=== PATIENT | female | born 1970 | race Caucasian/White ===

== ENCOUNTER 2017-05-26 13:49 | Emergency (ER) | payer MEDICARE, MEDICAID ==
--- NOTE | 2017-05-26 14:00 | ER Document Report ---
ED Medical Screen (RME) - General Chief Complaint: Allergic Reaction Stated Complaint: POSSIBLE ALLERGIC REACTION Time Seen by Provider: 05/26/17 13:58 Mode of Arrival: Medic Information source: Patient Notes: 46-year-old female presents as an allergic reaction as only took erythromycin, patient was given Benadryl 3 tablets as well as Solu-Medrol by EMS I have greeted and performed a rapid initial assessment of this patient. A comprehensive ED assessment and evaluation of the patient, analysis of test results and completion of the medical decision making process will be conducted by additional ED providers. PHYSICAL EXAMINATION: GENERAL: Drowsy HEAD: Atraumatic, normocephalic. EYES: Pupils equal round extraocular movements intact, conjunctiva are normal. ENT: Nares patent NECK: Normal range of motion LUNGS: No respiratory distress Musculoskeletal: Normal range of motion NEUROLOGICAL: Normal speech, normal gait. PSYCH: Normal mood, normal affect. SKIN:skin is red TRAVEL OUTSIDE OF THE [place] IN LAST 30 DAYS: No - Related Data Allergies/Adverse Reactions: erythromycin base [Erythromycin Base] Allergy (Intermediate, Verified 03/27/15 10:27) Hives Sulfa (Sulfonamide Antibiotics) Allergy (Unknown, Verified 04/03/15 08:22) STEROIDS Adverse Reaction (Intermediate, Uncoded 03/27/15 10:27) Swelling of hands and/or feet Past Medical History - Past Medical History Cardiac Medical History: Denies: Hx Coronary Artery Disease, Hx Heart Attack, Hx Hypertension Pulmonary Medical History: Reports: Hx Asthma Denies: Hx Bronchitis, Hx COPD, Hx Pneumonia Neurological Medical History: Denies: Hx Cerebrovascular Accident, Hx Seizures Musculoskeltal Medical History: Reports Hx Arthritis Psychiatric Medical History: Reports: Hx Anxiety, Hx Depression Past Surgical History: Reports: Hx Cholecystectomy, Hx Orthopedic Surgery - c 5/ 6 sugery/left knee, Hx Tonsillectomy - Immunizations Hx Diphtheria, Pertussis, Tetanus Vaccination: Yes
[2017-05-26] MEDS ORDERED: NORMAL SALINE 1000 ML 1,000 ML IV ONE (14:38)
[2017-05-26] MEDS ORDERED: FAMOTIDINE 20 MG TABLET PO ONE (14:38)
--- NOTE | 2017-05-26 16:35 | ER Document Report ---
ED Allergic Reaction - General Chief Complaint: Allergic Reaction Stated Complaint: POSSIBLE ALLERGIC REACTION Time Seen by Provider: 05/26/17 13:58 Mode of Arrival: Medic Information source: Patient Notes: Patient is a 46-year-old female who presents to the ER today for allergic reaction, rash all over after accidentally taking erythromycin which she is allergic to. Patient states that she is on amoxicillin for urinary tract infection and was finishing it with her last dose when her accidentally grabbed the wrong bottle which had erythromycin in it. Patient has a known allergy to erythromycin. She states that she got lightheaded about an hour after taking it and the rash started, she states that she is having some "scratching feeling" to her throat. She denies any difficulty breathing at this time. TRAVEL OUTSIDE OF THE [place] IN LAST 30 DAYS: No - Related Data Allergies/Adverse Reactions: erythromycin base [Erythromycin Base] Allergy (Intermediate, Verified 03/27/15 10:27) Hives Sulfa (Sulfonamide Antibiotics) Allergy (Unknown, Verified 04/03/15 08:22) STEROIDS Adverse Reaction (Intermediate, Uncoded 03/27/15 10:27) Swelling of hands and/or feet Past Medical History - General Information source: Patient - Social History Smoking Status: Current Every Day Smoker Chew tobacco use (# tins/day): No Frequency of alcohol use: None Drug Abuse: None Family History: Reviewed & Not Pertinent Patient has suicidal ideation: No Patient has homicidal ideation: No - Past Medical History Cardiac Medical History: Denies: Hx Coronary Artery Disease, Hx Heart Attack, Hx Hypertension Pulmonary Medical History: Reports: Hx Asthma Denies: Hx Bronchitis, Hx COPD, Hx Pneumonia Neurological Medical History: Denies: Hx Cerebrovascular Accident, Hx Seizures Renal/ Medical History: Denies: Hx Peritoneal Dialysis Musculoskeltal Medical History: Reports Hx Arthritis Psychiatric Medical History: Reports: Hx Anxiety, Hx Depression Past Surgical History: Reports: Hx Cholecystectomy, Hx Orthopedic Surgery - c 5/ 6 sugery/left knee; rotator cuffx2, Hx Tonsillectomy - Immunizations Hx Diphtheria, Pertussis, Tetanus Vaccination: Yes Review of Systems - Review of Systems Constitutional: No symptoms reported EENT: No symptoms reported Cardiovascular: No symptoms reported Respiratory: No symptoms reported Gastrointestinal: No symptoms reported Genitourinary: No symptoms reported Female Genitourinary: No symptoms reported Musculoskeletal: No symptoms reported Skin: No symptoms reported Hematologic/Lymphatic: No symptoms reported Neurological/Psychological: See HPI Physical Exam - Vital signs Vitals: Temp Pulse Resp BP Pulse Ox 97.4 F 106 H 20 105/55 L 99 05/26/17 13:54 05/26/17 13:54 05/26/17 13:54 05/26/17 13:54 05/26/17 13:54 - Notes Notes: PHYSICAL EXAMINATION: GENERAL: Uncomfortable appearing, but in no acute distress. HEAD: Atraumatic, normocephalic. EYES: Pupils equal round and reactive to light, extraocular movements intact, sclera anicteric, conjunctiva are normal. ENT: ear canals without erythema or foreign body, TMs pearly draper with good bony landmarks, nares patent, oropharynx clear without exudates. Moist mucous membranes. Airway patent NECK: Normal range of motion, supple without lymphadenopathy LUNGS: CTAB and equal. No wheezes rales or rhonchi. HEART: Regular rate and rhythm without murmurs ABDOMEN: Soft, no tenderness. No guarding, no rebound EXTREMITIES: Normal range of motion, no pitting edema. No cyanosis. NEUROLOGICAL: Cranial nerves grossly intact. Normal sensory/motor exams. PSYCH: Normal mood, normal affect. SKIN: Warm, Dry, normal turgor, erythematous urticaria to entire body excluding face Course - Re-evaluation Re-evalutation: 05/26/17 18:59 Patient received Solu-Medrol on the ambulance, received more Benadryl and Pepcid with me. She feels better and would like to go home. Patient's rash has lessened per family. She has no difficulty breathing. Workup is unremarkable today. I will send her home with a prescription for prednisone and advised Benadryl every 4 hours until symptoms have resolved completely. - Vital Signs Vital signs: Temp Pulse Resp BP Pulse Ox 97.9 F 82 16 115/69 98 05/26/17 16:47 05/26/17 16:47 05/26/17 16:47 05/26/17 16:47 05/26/17 16:47 Discharge - Discharge Clinical Impression: Allergic reaction Qualifiers: Encounter type: initial encounter Qualified Code(s): T78.40XA - Allergy, unspecified, initial encounter Condition: Stable Disposition: HOME, SELF-CARE Additional Instructions: Please continue to take Benadryl every 4 hours for the next 2 days. Return immediately for any new or worsening symptoms. Follow up with primary care provider, call tomorrow to make followup appointment. Prescriptions: Prednisone [Deltasone 20 mg Tablet] 3 tab PO DAILY 5 Days tablet
[2017-05-26 17:00] VITALS: BP 115/69
== END 2017-05-26 16:48 | disposition home or self-care (01) ==
LOC: ER 13:49
DX: T78.40XA Allergy, unspecified, initial encounter (principal); R21 Rash and other nonspecific skin eruption; F17.200 Nicotine dependence, unspecified, uncomplicated; Z88.3 Allergy status to other anti-infective agents; Z88.2 Allergy status to sulfonamides; Z90.49 Acquired absence of other specified parts of digestive tract
CPT/HCPCS: 99283; A9270; J7030